=== PATIENT | female | born 1950 | race Caucasian/White ===

== ENCOUNTER 2021-02-28 15:22 | Emergency (ER) | payer OTHER ==
[2021-02-28 16:49] LABS: HEMOGLOBIN 14.3 gm/dl (12.3-15.3); RED BLOOD COUNT 4.57 M/UL (4.00-5.10); WHITE BLOOD COUNT 7.5 K/UL (4.5-11.0)
[2021-02-28 17:19] LABS: BUN/CREATININE RATIO 27 (0-10)
[2021-02-28] MEDS ORDERED: COLACE100 MG PO (21:03)
[2021-02-28] MEDS ORDERED: CHRONULAC20 GM/30 M PO (21:03)
[2021-02-28] MEDS ORDERED: GLYCERIN1 EAC1 PR (21:03)
== END 2021-02-28 22:00 | disposition home or self-care (01) ==
LOC: ER1 15:22
PROVIDERS: Physician Assistant
DX: K59.00 Constipation, unspecified (principal); E03.9 Hypothyroidism, unspecified; Z90.710 Acquired absence of both cervix and uterus; Z90.49 Acquired absence of other specified parts of digestive tract; Z87.891 Personal history of nicotine dependence; Z79.899 Other long term (current) drug therapy
CPT/HCPCS: 80053; 81001; 83605; 83690; 85025; 96374; 96375; 99284; J1885; J2405

== ENCOUNTER → 2021-09-12 | Outpatient (CLI) | payer MEDICARE ==
[~2021-09-12] MED LIST: CHRONULAC20 GM/30 M PO; COLACE100 MG PO; GLYCERIN1 EAC1 PR
== END ==
LOC: KOH-I 12:22
DX: M54.2 Cervicalgia (principal); M54.42 Lumbago with sciatica, left side; G89.29 Other chronic pain; M47.812 Spondylosis without myelopathy or radiculopathy, cervical region; M47.817 Spondylosis without myelopathy or radiculopathy, lumbosacral region
CPT/HCPCS: 72040; 72100